=== PATIENT | female | born 1990 | race Caucasian/White ===

== ENCOUNTER 2020-11-21 10:58 | Emergency (ER) | payer OTHER ==
[2020-11-21 11:22] VITALS: BP 119/70; PULSE 77; TEMP 97.9; BMI 28.1
== END 2020-11-21 13:05 | disposition home or self-care (01) ==
LOC: JER 10:58
DX: R07.9 Chest pain, unspecified (principal)
CPT/HCPCS: 71046-TC-FY; 93005; 93010; 99283-25